=== PATIENT | male | born 1960 | race Caucasian/White ===

== ENCOUNTER 2018-08-28 05:38 | Day surgery (SDC) | payer BC, OTHER ==
[~2018-08-28] VITALS: Ht 175.3 cm; Wt 81.6 kg
[~2018-08-28 05:38] MED LIST: ALEVE220 MG PO; NORCO 5-325 TA1 EACH PO; TYLENOL EXTRA500 MG PO
[2018-08-28 06:31] VITALS: BP 149/78
--- NOTE | 2018-08-28 10:58 | O ---
[address] [address] OPERATIVE REPORT Name: IRMA QUINONES Room #: [facility]#: [id number] Admission: 08/28/18 Attend Phys: Delroy David MD Discharge: 08/28/18 Date of : 56 Report #: [id number] THIS REPORT FOR: //name// CC: Delroy Lloydvaldo Redd DATE OF SERVICE: 08/28/2018 SERVICE: Orthopedics. FACILITY: [place]. SURGEON: Delroy David MD BLOCK BREAKER OPERATOR: Deepali Tilley. PREOPERATIVE DIAGNOSES: 1. Left knee pain. 2. Left knee medial meniscus tear. POSTOPERATIVE DIAGNOSES: 1. Left knee pain. 2. Left knee medial meniscus tear. 3. Left knee lateral meniscus tear. 4. Left knee chondromalacia of patella. PROCEDURE: Left knee arthroscopy with partial medial and lateral meniscectomies with chondroplasty. COMPLICATIONS: None. DRAINS: None. SPECIMENS: None. ANESTHESIA: General with LMA. FINDINGS: 1. Focal area of chondromalacia of the patella treated with debridement. 2. Complex tear of the posterior horn of the medial meniscus with an unstable flap tear with associated posterior medial femoral condyle chondromalacia. HISTORY: The patient is a gentleman who had been treated conservatively for symptomatic left knee medial meniscus tear for some time. Unfortunately, these treatments were insufficient and he continued to have lifestyle-limiting pain, which is affecting daily activities as well as his work. I had a discussion [address] [place] [address] OPERATIVE REPORT Name: IRMA QUINONES Room #: [facility]P [facility].#: [id number] Admission: 08/28/18 Attend Phys: Delroy David MD Discharge: 08/28/18 Date of : 56 Report #: [id number] about treatment options with him including surgical management and he elected to undergo surgical treatment after the risks, benefits, alternatives and indications of surgery were discussed with him in detail. Risks include but not limited to pain, bleeding, infection, injury to nerves or blood vessels, persistent pain despite surgical intervention, failure of any procedures, progression of any preexisting chondral injury, stiffness, need for further surgery as well as complications related to anesthesia such as stroke, heart attack, pulmonary complications, thromboembolic disease and . Despite these risks, he wished to proceed. PROCEDURE IN DETAIL: After the left lower extremity was correctly identified in the preoperative holding area as the operative extremity, the patient was taken to the operating room where general anesthesia was induced without complication. He was padded appropriately. Prophylactic antibiotics were administered at appropriate time. Tourniquet was applied to the left leg. Left lower extremity was prepped and draped in a standard sterile fashion. Time-out procedure was performed. Esmarch was utilized and tourniquet inflated to 250 mmHg. Total tourniquet time was 22 minutes. Standard anterolateral viewing portal as well as anterior medial working portal was established in typical fashion. There was noted to be a significant effusion, which was drained and there was synovitis present and this was treated with a partial synovectomy with the shaver. There was fraying of the superior pole of the patella articular cartilage, which was treated with debridement with the shaver to stable perimeter. The ACL was intact. The PCL was intact. The medial compartment was noted to have a significant complex tear of the posterior horn extending across the posterior horn into the medial meniscus root. The biter and shaver were used to debride the meniscus to stable perimeter. After this was completed, the meniscal debris was lavaged out of the knee. The debridement was completed medially and the leg was placed in a [id number] position and camera placed laterally. There was noted to be a partial thickness approximately 30% inner rim radial tear at the posterior horn of the lateral meniscus, which was treated with debridement with a biter followed by the shaver to a stable perimeter. The lateral compartment was otherwise normal. At this point, the instruments were removed as well as the arthroscopic effusion. Portal sites were closed. 0.25% Marcaine with epinephrine, a total of 30 mL was infiltrated in the soft tissues for postoperative pain control. Sterile dressing was applied followed by compression stocking. The patient was [address] [address] OPERATIVE REPORT Name: IRMA QUINONES Room #: [place] [facility] [place]#: [id number] Admission: 08/28/18 Attend Phys: Delroy David MD Discharge: 08/28/18 Date of : 56 Report #: [id number] awakened from anesthesia and taken to the recovery room in stable condition. No complications and all counts were recorded as correct. <ELECTRONICALLY SIGNED> By: Delroy David MD 08/28/18 1058 [id number] [id number] Delroy David MD /nt
== END 2018-08-28 09:35 | disposition home or self-care (01) ==
LOC: OR 05:38 → TBA 05:42 → OR 09:35
DX: S83.242A Other tear of medial meniscus, current injury, left knee, initial encounter (principal); S83.282A Other tear of lateral meniscus, current injury, left knee, initial encounter; M22.42 Chondromalacia patellae, left knee; M65.862 Other synovitis and tenosynovitis, left lower leg; F17.210 Nicotine dependence, cigarettes, uncomplicated; Z90.49 Acquired absence of other specified parts of digestive tract; Z98.41 Cataract extraction status, right eye; Z98.42 Cataract extraction status, left eye; Z98.890 Other specified postprocedural states; Z79.899 Other long term (current) drug therapy; Z96.1 Presence of intraocular lens; Z88.0 Allergy status to penicillin; Z88.8 Allergy status to other drugs, medicaments and biological substances; Z79.891 Long term (current) use of opiate analgesic; X58.XXXA Exposure to other specified factors, initial encounter; Y93.89 Activity, other specified; Y92.89 Other specified places as the place of occurrence of the external cause; Y99.8 Other external cause status
CPT/HCPCS: 50010; 50101; 50405; 51038; 54170; 56527; 57103; 57180; 62110; 62900; 70005

== ENCOUNTER → 2019-05-12 | Outpatient (CLI) | payer OTHER | LOC: CAT 07:55 | DX: Z13.6 Encounter for screening for cardiovascular disorders (principal); E78.00 Pure hypercholesterolemia, unspecified; I25.10 Atherosclerotic heart disease of native coronary artery without angina pectoris ==

== ENCOUNTER → 2020-05-24 | Outpatient (CLI) | payer BC, OTHER | LOC: LAB 11:55 | PROVIDERS: ATTEND Family Medicine | DX: U07.1 COVID-19 (principal) ==